=== PATIENT | male | born 1975 | race Caucasian/White ===

== ENCOUNTER 2023-03-10 14:06 | Emergency (ER) | payer BC ==
[~2023-03-10] VITALS: Ht 170.2 cm; Wt 86.2 kg
[2023-03-10 14:33] VITALS: BP 108/88; PULSE 99; RESP 20; TEMP 98.1; O2SAT 100
[2023-03-10] MEDS ORDERED: NACL 0.9% 1,000 ML IV ONE (14:45)
[2023-03-10] MEDS ORDERED: ONDANSETRON 4 MG/2 ML VIAL IVP ONE (14:45)
[2023-03-10 15:43] LABS: BASOPHILS # (AUTO) 0.1 K/uL (0.00-0.22); BASOPHILS % (AUTO) 0.6 % (0.0-2.0); EOSINOPHILS % (AUTO) 0.1 % (0.0-4.0); HEMATOCRIT 40.8 % (36-52); HEMOGLOBIN 13.9 g/dL (12.0-18.0); LYMPHOCYTES % (AUTO) 10.1 % (20.5-51.1); MEAN CORPUSCULAR HEMOGLOBIN 31 pg (27-31); MEAN CORPUSCULAR HGB CONC 34 g/dL (33-37); MEAN CORPUSCULAR VOLUME 90.6 fL (80-94); MONOCYTES # (AUTO) 0.5 K/uL (0.8-1.0); MONOCYTES % (AUTO) 5.2 % (1.7-9.3); NEUTROPHILS # (AUTO) 8.1 K/uL (1.8-7.7); PLATELET COUNT (AUTO) 187 K/uL (140-450); RED BLOOD CELL COUNT(AUTO) 4.51 MIL/uL (4.20-6.10); RED CELL DISTRIBUTION WIDTH 13.8 % (11.6-13.7); WHITE BLOOD COUNT (AUTO) 9.7 K/uL (4.8-10.8)
[2023-03-10 16:09] LABS: ANION GAP 15.5 (8-16); CALCIUM 8.9 mg/dL (8.5-10.1); CARBON DIOXIDE 25.9 mmol/L (21-32); POTASSIUM 3.4 mmol/L (3.5-5.1)
[2023-03-10 16:18] LABS: ALANINE AMINOTRANSFERASE 38 U/L (12-78); ALBUMIN 3.8 g/dL (3.4-5.0); ALKALINE PHOSPHATASE 48 U/L (50-136); ASPARTATE AMINOTRANSFERASE 23 U/L (15-37); BILIRUBIN,DIRECT 0.1 mg/dL (0.0-0.3); TOTAL BILIRUBIN 0.6 mg/dL (0.0-1.0); TOTAL PROTEIN, SERUM 7.6 g/dL (6.4-8.2)
[2023-03-10 16:23] LABS: FIBRINOGEN 262 mg/dL (200-400); INR 1.21 (0.8-1.2); PARTIAL THROMBOPLASTIN TIME 21.6 secs (22-35.6); PROTHROMBIN TIME 12.6 secs (10.8-13.4)
[2023-03-10 16:29] LABS: D-DIMER < 100 ng/ml (0-400)
[2023-03-10] MEDS ORDERED: POTASSIUM CHLORIDE 10 MEQ TABER PO ONE (16:55)
[2023-03-10] MEDS ORDERED: POTA10TA70 PO (17:09)
[2023-03-10] MEDS ORDERED: ONDA-188 PO (17:12)
[2023-03-10 18:18] VITALS: BP 145/73; PULSE 70; RESP 20; TEMP 96.6; O2SAT 99
== END 2023-03-10 18:24 | disposition home or self-care (01) ==
LOC: MED 14:06
DX: R06.02 Shortness of breath (principal); R29.0 Tetany; R73.9 Hyperglycemia, unspecified; E87.6 Hypokalemia; Z79.899 Other long term (current) drug therapy
CPT/HCPCS: 36415; 71045; 80048; 80076; 83880; 84484; 85025; 85379; 85384; 85610; 85730; 86886; 86900; 86901; 93005; 96361; 96374; 99285; J2405; J7030